=== PATIENT | male | born 1960 | race Caucasian/White ===

== ENCOUNTER 2016-08-16 10:31 | Emergency (ER) | payer BC ==
[2016-08-16 10:40] VITALS: BP 147/88; PULSE 72
--- NOTE | 2016-08-16 10:47 | ERPHSYRPT ---
- History of Present Illness Time Seen by Provider: 08/16/16 10:43 Source: patient Exam Limitations: no limitations Patient Subjective Stated Complaint: pt reports having a tick on back-attempted to remove it by cotton ball et dish soap-denies pain or itching Triage Nursing Assessment: pt pink warm et dry-tick noted to back Physician History: pt reports having a tick on back-attempted to remove it by cotton ball et dish soap-denies pain or itching Timing/Duration: today Associated Symptoms: denies symptoms Allergies/Adverse Reactions: penicillin G Allergy (Intermediate, Verified 08/16/16 10:38) Swelling Home Medications: Olmesartan Medoxomil [Benicar] 40 mg PO DAILY 08/16/16 [History] Hx Tetanus, Diphtheria Vaccination/Date Given: No Hx Influenza Vaccination/Date Given: No Hx Pneumococcal Vaccination/Date Given: No Immunizations Up to Date: Yes - Review of Systems Constitutional: No Symptoms Eyes: No Symptoms Skin: Other (tick present right loin area) - Past Medical History Pertinent Past Medical History: Yes Cardiac History: Hypertension - Past Surgical History Past Surgical History: Yes Musculoskeletal: Orthopedic Surgery - Social History Smoking Status: Current every day smoker How long have you smoked: yrs Exposure to second hand smoke: Yes Drug Use: none Patient Lives Alone: No - Nursing Vital Signs Nursing Vital Signs: Initial Vital Signs Temperature 97.7 F Temperature Source Oral Pulse Rate 72 Respiratory Rate 22 Blood Pressure [Right Arm] 147/88 Pain Intensity 0 - Physical Exam General Appearance: no apparent distress Skin Exam: other (tick present right loin area) - Course Nursing assessment & vital signs reviewed: Yes - Progress Progress: improved Progress Note: 08/16/16 10:44 tick removed with forceps Counseled pt/family regarding: diagnosis, need for follow-up - Departure Time of Disposition: 10:46 Departure Disposition: Home Clinical Impression: Tick bite of abdominal wall Qualifiers: Encounter type: initial encounter Qualified Code(s): S30.861A - Insect bite ( nonvenomous) of abdominal wall, initial encounter; W57.XXXA - Bitten or stung by nonvenomous insect and other nonvenomous arthropods, initial encounter Condition: Stable Critical Care Time: No Referrals: DOCTOR,NO FAMILY [Primary Care Provider] - Instructions: Insect Bites and Stings
== END 2016-08-16 11:05 | disposition home or self-care (01) ==
LOC: ED 10:31
DX: S30.861A Insect bite (nonvenomous) of abdominal wall, initial encounter (principal); W57.XXXA Bitten or stung by nonvenomous insect and other nonvenomous arthropods, initial encounter; I10 Essential (primary) hypertension
CPT/HCPCS: 99282